=== PATIENT | male | born 1945 | race Caucasian/White ===

== ENCOUNTER 2021-04-16 07:47 | Day surgery (SDC) | payer MEDICARE ==
[2021-04-13 12:28] LABS: BASOPHILS % (AUTO) 0.8 % (0.0-5.0); EOSINOPHILS % (AUTO) 4.7 % (0.0-8.0); HEMATOCRIT 33.6 % (42-54); LYMPHOCYTES % (AUTO) 26.8 % (21.0-51.0); MEAN CORPUSCULAR HGB CONC 33.9 g/dL (32.0-36.0); MEAN CORPUSCULAR VOLUME 91.3 fL (79-99); MONOCYTES % (AUTO) 8.2 % (3.0-13.0); NEUTROPHILS % (AUTO) 59.1 % (40.0-77.0); PLATELET COUNT (AUTO) 304 K/uL (130-400); RED BLOOD CELL COUNT(AUTO) 3.68 MIL/uL (4.50-6.20); RED CELL DISTRIBUTION WIDTH 14.6 % (11.0-15.5); WHITE BLOOD COUNT (AUTO) 11.2 K/uL (4.8-10.8)
[2021-04-13 12:39] LABS: POTASSIUM 4.9 mmol/L (3.5-5.1)
[2021-04-15 15:20] VITALS: BP 118/65
[2021-04-16] VITALS (18 sets, daily range): BP systolic 115–144; BP diastolic 54–74
[~2021-04-16] VITALS: Ht 172.7 cm; Wt 73.7 kg
[~2021-04-16 07:47] MED LIST: CEFTRIAXONE 1G VIAL IVP SCH
[2021-04-16] MEDS ORDERED: 0.9%NACL 1000ML 1,000 ML IV ONE (08:40)
[2021-04-16] MEDS ORDERED: LIDOCAINE PF 100MG/5ML (2%) SYRINGE 5ML ONE (09:41)
[2021-04-16] MEDS ORDERED: FENTANYL CITRATE PF 50 MCG/1 ML 2ML VIAL ONE (09:42)
[2021-04-16] MEDS ORDERED: PROPOFOL 10 MG/ML 20ML VIAL IV ONE (09:42)
[2021-04-16] MEDS ORDERED: MIDAZOLAM HCL 1 MG/ML 2ML VIAL ONE (09:42)
[2021-04-16] MEDS ORDERED: ROCURONIUM 10MG/1ML SYR 10 MG/ML ML ONE (09:42)
[2021-04-16] MEDS ORDERED: METF-444 PO (09:47)
[2021-04-16] MEDS ORDERED: AEC81 PO (09:47)
[2021-04-16] MEDS ORDERED: ATEN50TA PO (09:47)
[2021-04-16] MEDS ORDERED: ALLO300T2 PO (09:47)
[2021-04-16] MEDS ORDERED: IRBE150T24 PO (09:47)
[2021-04-16] MEDS ORDERED: TAMS-1 PO (09:47)
[2021-04-16] MEDS ORDERED: AMLO-258 PO (09:47)
[2021-04-16] MEDS ORDERED: HYDR25TA PO (09:47)
[2021-04-16] MEDS ORDERED: EPHEDRINE SULFATE 50 MG/ML AMPULE ONE (10:00)
[2021-04-16] MEDS ORDERED: DEXAMETHASONE SOD PHOSPHATE 10MG/ML 1ML VIAL ONE (10:09)
[2021-04-16] MEDS ORDERED: ONDANSETRON 4MG INJ ONE (10:32)
[2021-04-16] MEDS ORDERED: OPIUM/BELLADONNA ALKALOIDS 1 EACH SUPP.RECT RC ONE (10:57)
[2021-04-16] MEDS ORDERED: NEOSTIGMINE 5MG/5ML SYR IV ONE (11:02)
[2021-04-16] MEDS ORDERED: GLYCOPYRROLATE 1 MG/5 ML SYRINGE ONE (11:02)
[2021-04-16] MEDS ORDERED: PHENAZOPYRIDINE HCL 200 MG TABLET PO SCH (12:30)
[2021-04-16] MEDS ORDERED: OPIUM/BELLADONNA ALKALOIDS 1 EACH SUPP.RECT RC SCH (12:30)
== END 2021-04-16 13:10 | disposition home or self-care (01) ==
LOC: DAH 07:47
PROVIDERS: ATTEND Urology
DX: N40.1 Benign prostatic hyperplasia with lower urinary tract symptoms (principal); Z20.822 Contact with and (suspected) exposure to COVID-19; R33.8 Other retention of urine; R35.1 Nocturia; B96.1 Klebsiella pneumoniae [K. pneumoniae] as the cause of diseases classified elsewhere; E11.22 Type 2 diabetes mellitus with diabetic chronic kidney disease; I12.9 Hypertensive chronic kidney disease with stage 1 through stage 4 chronic kidney disease, or unspecified chronic kidney disease; N18.9 Chronic kidney disease, unspecified; J44.9 Chronic obstructive pulmonary disease, unspecified; Z79.84 Long term (current) use of oral hypoglycemic drugs; Z79.82 Long term (current) use of aspirin; Z79.899 Other long term (current) drug therapy; Z98.890 Other specified postprocedural states
CPT/HCPCS: 36415; 52648; 80048; 82948 ×2; 85025; 87426; 93005; A4215; A4221; A4222; A4223; A4340; A4354; A4358; A4495; A4600; A4663; A5113; A6260; J0696; J1100; J2001; J2250; J2405; J2704; J2710; J3010; J3490 ×2; J7030 ×2; J7120